=== PATIENT | male | born 1965 | race Caucasian/White ===

== ENCOUNTER 2017-02-26 09:49 | Emergency (ER) | payer OTHER ==
[~2017-02-26] VITALS: Ht 162.6 cm; Wt 89.0 kg
[2017-02-26 09:52] VITALS: Ht 162.6 cm; Wt 89.0 kg
[2017-02-26] MEDS ORDERED: KETOROLAC 30 MG INJ IM STA (10:43)
[2017-02-26 10:56] LABS: URINE BLOOD (Dip) POC 2+ (NEGATIVE)
[2017-02-26] MEDS ORDERED: NAPR-260 PO (11:33)
--- NOTE | 2017-02-26 11:37 | ERD ---
ER Documentation Chief Complaint Date/Time DATE: 02/26/17 TIME: 11:33 Chief Complaint back pain KATHYA Is a 51-year-old male who presents to the ED with left-sided back pain 2 days. States that he works in construction. States that 2 days ago he had pain when he got up from a seated position. He denies any trauma, or falls. Denies dysuria, urgency, nausea, vomiting. Has had kidney stones in the past.. States that the pain is worse when he gets up from a seated position and lays down. Denies radiation of pain down his legs. Denies weakness, numbness or tingling. Denies chest pain or cough or shortness of breath. Denies abdominal pain. No other complaints. ROS All systems reviewed and are negative except as per history of present illness. Medications Home Meds Active Scripts Naproxen* (Naprosyn*) 500 Mg Tablet, 500 MG PO BID Y for PAIN AND/OR INFLAMMATION, #30 TAB Prov:JUANY ESCALANTE PA-C 02/26/17 Allergies Allergies: Coded Allergies: No Known Allergy (Unverified , 12/29/13) PMhx/Soc Hx Alcohol Use: No Hx Substance Use: No Hx Tobacco Use: No FmHx Family History: No coronary disease, No diabetes, No other Physical Exam Vitals Vital Signs Date Time Temp Pulse Resp B/P Pulse Ox O2 Delivery O2 Flow Rate FiO2 02/26/17 09:52 98.1 67 18 140/70 99 Physical Exam GENERAL: Well-developed, well-nourished male. Appears in no acute distress. HEAD: Normocephalic, atraumatic. EYES: Pupils are equally reactive bilaterally. EOMs grossly intact. No conjunctival erythema. ENT: Moist mucous membranes. No uvula deviation. No kissing tonsils. No exudates. NECK: Supple. No lymphadenopathy or thyromegaly. No meningismus. negative kernig. negative brudinski. LUNG: Clear to auscultation bilaterally. No rhonchi, wheezing, rales or coarse breath sounds. HEART: Regular rate and rhythm. No murmurs, rubs or gallops. ABDOMEN: No scars, ecchymosis or rashes noted. Soft, nontender, and nondistended. Positive bowel sounds in all four quadrants. No rebound tenderness , no guarding. (-) McBurneys point tenderness. No CVA tenderness. BACK: No midline tenderness. Final tenderness. Negative straight leg test. Extremities: Equal pulses bilaterally. No peripheral clubbing, cyanosis or edema. No unilateral leg swelling. NEUROLOGIC: Alert and oriented. Moving all four extremities. 5/5 strength in all extremities. Normal speech. Steady gait. SKIN: Normal color. Warm and dry. No rashes or lesions. Capillary refill < 2 seconds Results 24 hrs Laboratory Tests Test 02/26/17 11:04 Bedside Urine pH (LAB) 5.5 Bedside Urine Protein (LAB) Negative Bedside Urine Glucose (UA) Negative Bedside Urine Ketones (LAB) Negative Bedside Urine Blood 2+ Bedside Urine Nitrite (LAB) Negative Bedside Urine Leukocyte Esterase (L Negative Current Medications Medications (Trade) Dose Ordered Sig/Sara Route PRN Reason Start Time Stop Time Status Last Admin Dose Admin Ketorolac Tromethamine (Toradol) 30 mg ONCE STAT IM 02/26/17 10:43 02/26/17 10:44 DC 02/26/17 10:54 Procedures/MDM ER COURSE: I kept the patient and/or family informed of laboratory and diagnostic imaging results throughout the emergency room course. MEDICAL DECISION MAKING: This is a 51-year-old male who presents with left-sided back pain 2 days. Vital signs were reviewed. Patient is afebrile. Patient is not hypoxic. Is not toxic or ill-appearing. Dip shows 2+ hematuria with no nitrites or leukocytes. Patient denies gross hematuria. I have low suspicion for septic or obstructed stone. Patient has likely nephrolithiasis versus muscle strain and sprain. Patient was given Toradol in the ED, tolerated well with no adverse reaction. Patient to follow-up with urologist for further evaluation. At this time no CT scan or blood work was ordered. Patient pain level is 2 out of 10 and does not have CVA tenderness or nausea vomiting or abdominal pain. Low suspicion for cauda equine syndrome, spinal epidural hematoma, spinal epidural abscess, osteomyelitis, fracture, aortic dissection, AAA, pyelonephritis, nephrolithiasis, septic stone, obstructed stone. DISCHARGE: At this time, patient is stable for discharge and outpatient management with no new complaints during the ER course. Patient was sent home with Liliya to follow-up with urologist. Patient will be discharged home with instructions to recheck for new or worsening symptoms such as fever, nausea, weakness, LOC and to follow up with primary care in the next 1-2 days. Patient was advised to return to the ER for any new or worsening symptoms. Plan was discussed and patient and/or family understands and agrees. Home instructions were given. Departure Diagnosis: Primary Impression: Back pain Back pain location: low back pain Chronicity: unspecified Back pain laterality: left Sciatica presence: without sciatica Qualified Code: M54.5 - Left-sided low back pain without sciatica, unspecified chronicity Condition: Stable Patient Instructions: Back Pain (Acute Or Chronic) Additional Instructions: Llame al doctor MAANA y enrique keri YULISSA PARA DENTRO DE 1-2 BEDOYA.Dgale a la secretaria que nosotros le instruimos hacer esta yulissa.Avise o llame si metzger condicin se empeora antes de la yulissa. Regresa aqui si peor o no mejor. JUANY ESCALANTE PA-C Feb 26, 2017 11:37
== END 2017-02-26 11:44 | disposition home or self-care (01) ==
LOC: FTE 09:49
DX: M54.5 Low back pain (principal)
CPT/HCPCS: 81003; 96372; J1885; Z7502